=== PATIENT | female | born 1980 | race Caucasian/White ===

== ENCOUNTER 2016-08-02 17:34 | Emergency (ER) | payer OTHER ==
[~2016-08-02] VITALS: Ht 182.9 cm; Wt 71.0 kg
[~2016-08-02 17:34] MED LIST: IBUP600 PO; IRON325T2 PO; OXYC1SOL5 PO; PEDI1CHW6 CHEW
[2016-08-02 17:40] VITALS: BP 120/88; PULSE 70; RESP 18; TEMP 98.4; O2SAT 99
--- NOTE | 2016-08-02 17:50 | PD ---
HPI Chief Complaint: GI Complaint Time Seen by Provider: 17:49 Travel History International Travel<30 days: No Contact w/Intl Traveler<30days: No Traveled to known affect area: No History of Present Illness HPI 35-year-old female presents to the ED for evaluation of one week history of episodic fevers, chills, nausea and vomiting. Patient states first episode of vomiting occurred 4 days ago. She states that she was still feeling a little nauseated but was able to go about her normal activities. She endorses several similar episodes over the last 3 days. She also endorses dull, anterior headache. She denies photophobia, sensitivity to noise, vision changes, dizziness. She denies sinus congestion, ear pain, rhinorrhea, cough. She denies palpitations, shortness of breath, abdominal pain, dysuria, back pain. Denies chronic health problems. Takes no daily medications. NKDA. PFSH Past Medical History Medical History: Denies Significant Hx Cancer: No Cardiovascular Problems: No Diabetes: No Endocrine: No Genitourinary: No Hepatitis: No Hiatal Hernia: No Immune Disorder: No Musculoskeletal: No Neurologic: No Psychiatric: No Reproductive: Yes (MISSED AB) Respiratory: No Thyroid Disease: No Tetanus Vaccination: > 5 Years Influenza Vaccination: No ?: Not LMP: TUESDAY : 3 Para: 1 : 1 Past Surgical History Body Medical Devices: BILATERAL BREAST IMPLANTS Ear Surgery: Yes (INSERTION JUAN JOSE EAR TUBES) Tonsillectomy: Yes Other Surgery: Yes (BREAST IMPLANTS) Social History Alcohol Use: No Tobacco Use: No Substance Use: No Allergies-Medications (Allergen,Severity, Reaction): Coded Allergies: No Known Allergies (Unverified , 08/02/16) Reported Meds & Prescriptions Reported Meds & Active Scripts Active Zofran Odt (Ondansetron Odt) 4 Mg Tab 4 Mg SL Q8HR PRN Bactrim DS (Sulfamethoxazole-Trimethoprim) 800-160 Mg Tab 1 Tab PO BID Review of Systems Except as stated in HPI: all other systems reviewed are Neg Physical Exam Narrative GENERAL: Well-nourished, well-developed nontoxic appearing white female in no acute distress. SKIN: Warm and dry. HEAD: Normocephalic. Atraumatic. EYES: No scleral icterus. No injection or drainage. PERRLA. EOMI. ENT: Pearly sorenson tympanic membranes bilaterally. Nasal mucosa is moist. Oropharynx without erythema, edema or exudate. NECK: Supple, trachea midline. No JVD or lymphadenopathy. CARDIOVASCULAR: Regular rate and rhythm without murmurs, gallops, or rubs. 2+ DP and radial pulses bilaterally. RESPIRATORY: Breath sounds clear and equal bilaterally. No accessory muscle use. GASTROINTESTINAL: Abdomen soft, nondistended. + Bowel sounds. Tender to deep palpation of the right extreme lower quadrant. Negative Rovsing's or obturator signs. MUSCULOSKELETAL: No cyanosis, or edema. Patient is ambulatory, moves extremities spontaneously. NEUROLOGICAL: Awake and alert. Cranial nerves II through XII intact. Motor and sensory grossly within normal limits. Five out of 5 muscle strength in all muscle groups. Normal speech. BACK: Nontender without obvious deformity. No CVA tenderness. Data Data Last Documented VS Vital Signs Date Time Temp Pulse Resp B/P Pulse Ox O2 Delivery O2 Flow Rate FiO2 08/02/16 20:31 72 20 123/73 98 Room Air 08/02/16 17:40 98.4 Orders Complete Blood Count With Diff (08/02/16 18:03) Comprehensive Metabolic Panel (08/02/16 18:03) Lipase (08/02/16 18:03) Lactic Acid (08/02/16 18:03) Prothrombin Time / Inr (Pt) (08/02/16 18:03) Act Partial Throm Time (Ptt) (08/02/16 18:03) Urinalysis - C+S If Indicated (08/02/16 18:03) Iv Access Insert/Monitor (08/02/16 18:03) Sodium Chloride 0.9% Flush (Ns Flush) (08/02/16 18:15) Ed Urine Pregnancytest Poc (08/02/16 18:03) Ondansetron Inj (Zofran Inj) (08/02/16 18:15) Sodium Chlorid 0.9% 500 Ml Inj (Ns 500 M (08/02/16 18:15) Influenzae A/B Antigen (08/02/16 18:09) Urine Culture (08/02/16 18:15) Sulfamet-Trimeth Ds 800-160 Mg (Bactrim (08/02/16 19:15) Us Pelvis Comp W Doppler (08/02/16 ) Ketorolac Inj (Toradol Inj) (08/02/16 20:15) Labs Laboratory Tests Test 08/02/16 08/02/16 18:15 18:18 Urine Collection Type VOIDED Urine Color STRAW Urine Turbidity CLEAR Urine pH 6.0 Urine Specific [place] 1.011 Urine Protein NEG mg/dL Urine Glucose (UA) NEG mg/dL Urine Ketones NEG mg/dL Urine Occult Blood LARGE Urine Nitrite NEG Urine Bilirubin NEG Urine Leukocyte Esterase TRACE Urine WBC 0-2 /hpf Urine WBC Clumps RARE Urine Squamous Epithelial 0-5 /hpf Cells Urine Bacteria RARE /hpf Microscopic Urinalysis Comment CULTURE INDICATED White Blood Count 5.5 TH/MM3 Red Blood Count 4.48 MIL/MM3 Hemoglobin 13.8 GM/DL Hematocrit 40.3 % Mean Corpuscular Volume 89.9 FL Mean Corpuscular Hemoglobin 30.8 PG Mean Corpuscular Hemoglobin 34.3 % Concent Red Cell Distribution Width 12.4 % Platelet Count 265 TH/MM3 Mean Platelet Volume 7.9 FL Neutrophils (%) (Auto) 57.4 % Lymphocytes (%) (Auto) 26.2 % Monocytes (%) (Auto) 8.6 % Eosinophils (%) (Auto) 3.8 % Basophils (%) (Auto) 4.0 % Neutrophils # (Auto) 3.2 TH/MM3 Lymphocytes # (Auto) 1.4 TH/MM3 Monocytes # (Auto) 0.5 TH/MM3 Eosinophils # (Auto) 0.2 TH/MM3 Basophils # (Auto) 0.2 TH/MM3 CBC Comment DIFF FINAL Differential Comment Prothrombin Time 11.4 SEC Prothromb Time International 1.0 RATIO Ratio Activated Partial 28.8 SEC Thromboplast Time Sodium Level 141 MEQ/L Potassium Level 3.9 MEQ/L Chloride Level 108 MEQ/L Carbon Dioxide Level 26.3 MEQ/L Anion Gap 7 MEQ/L Blood Urea Nitrogen 14 MG/DL Creatinine 0.80 MG/DL Estimat Glomerular Filtration 82 ML/MIN Rate Random Glucose 101 MG/DL Lactic Acid Level 0.9 mmol/L Calcium Level 8.4 MG/DL Total Bilirubin 1.2 MG/DL Aspartate Amino Transf 11 U/L (AST/SGOT) Alanine Aminotransferase 11 U/L (ALT/SGPT) Alkaline Phosphatase 46 U/L Total Protein 6.6 GM/DL Albumin 3.6 GM/DL Lipase 100 U/L [facility] Medical Decision Making Medical Screen Exam Complete: Yes Emergency Medical Condition: Yes Differential Diagnosis influenza versus ectopic versus cholecystitis versus appendicitis versus cystitis versus UTI versus ovarian torsion versus ovarian cyst versus other Narrative Course 35-year-old female presents to the ED for evaluation of one week history of episodic fevers, chills, nausea and vomiting. Patient states first episode of vomiting occurred 4 days ago. She states that she was still feeling a little nauseated but was able to go about her normal activities. She endorses several similar episodes over the last 3 days. Episodes last 30 minutes to an hour, resolved spontaneously. She also endorses dull, anterior headache. She denies photophobia, sensitivity to noise, vision changes, dizziness,sinus congestion, ear pain, rhinorrhea, cough, palpitations, shortness of breath, abdominal pain, dysuria, back pain. Vitals reviewed. Physical exam reveals a nontoxic- appearing white female in no acute distress. There is tenderness to deep palpation in the right extreme lower quadrant but the physical exam is otherwise reassuring. IV was established. Patient was administered half liter bolus and IV Zofran and Toradol. CBC: No leukocytosis or anemia CMP: Unremarkable UA: Large occult blood, trace leukocyte esterase, rare wbc clumps, rare bacteria. Culture pending. Lipase: 100 Lactic acid: 0.9 Bedside urine test: Coags: INR 1.0 Influenza: Negative Pelvic ultrasound: Normal for age per radiology read. Recheck the patient reveals improvement of her headache symptoms. Patient was prescribed Bactrim DS twice a day 7 days. First dose administered in the ED. I prescribed Zofran 5 doses. Discussed the results of the workup with the patient. We discussed reasons to return to the ED. Patient is instructed to take medication as prescribed, follow up with her primary care provider. She indicated understanding of the instructions and is amenable to the plan of care. This patient is stable and discharged home. Diagnosis Primary Impression: Urinary tract infection Qualified Code: N39.0 - Urinary tract infection with hematuria, site unspecified Additional Impression: Cephalgia Qualified Code: R51 - Nonintractable episodic headache, unspecified headache type Referrals: Primary Care Physician Patient Instructions: General Instructions, Urinary Tract Infection in Women ( ED) Additional Instructions: Rest, hydrate. Take all medication as prescribed, even if your symptoms resolved. Zofran as needed for nausea. Follow-up with the primary care provider next week. Return to the ED for any urgent or emergent medical condition. Med/Other Pt SpecificInfo: Prescription(s) given Scripts Ondansetron Odt (Zofran Odt)4 Mg Tab4 Mg SL Q8HR PRN (Nausea/Vomiting) #4 TAB Ref 0 Prov:Myles Marvin MD 08/02/16 Sulfamethoxazole-Trimethoprim (Bactrim DS)800-160 Mg Tab1 Tab PO BID #14 TAB Ref 0 Prov:Myles Marvin MD 08/02/16 Disposition: 01 DISCHARGE HOME Condition: Stable Kavitha Dietz Aug 02, 2016 17:49
[2016-08-02] MEDS ORDERED: ONDANSETRON HCL 4 MG/2 ML VIAL IV PUSH ONE (18:15)
[2016-08-02] MEDS ORDERED: SODIUM CHLORID 0.9% 500 ML INJ 500 ML IV ONE (18:15)
[2016-08-02] MEDS ORDERED: SODIUM CHLORIDE 0.9% FLUSH 5 ML FLUSH IVF PRN (18:15)
[2016-08-02 18:24] LABS: AUTOMATED NEUTROPHIL # 3.2 TH/MM3 (1.8-7.7); BASOPHIL # 0.2 TH/MM3 (0-0.2); EOSINOPHIL # 0.2 TH/MM3 (0-0.4); EOSINOPHIL % 3.8 % (0.0-4.0); HEMATOCRIT 40.3 % (35.0-46.0); HEMO FLAGS DIFF FINAL; LYMPH % 26.2 % (9.0-44.0); LYMPHOCYTE # 1.4 TH/MM3 (1.0-4.8); MEAN CELL VOLUME 89.9 FL (80.0-100.0); MEAN CORPUSCULAR HEMOGLOBIN 30.8 PG (27.0-34.0); MEAN CORPUSCULAR HGB CONC 34.3 % (32.0-36.0); MONO % 8.6 % (0.0-8.0); NEUT % 57.4 % (16.0-70.0); PLATELET COUNT 265 TH/MM3 (150-450); RED BLOOD COUNT 4.48 MIL/MM3 (4.00-5.30); RED CELL DISTRIBUTION WIDTH 12.4 % (11.6-17.2); WHITE BLOOD COUNT 5.5 TH/MM3 (4.0-11.0)
[2016-08-02 18:42] LABS: CHLORIDE 108 MEQ/L (98-107); POTASSIUM 3.9 MEQ/L (3.5-5.1); SODIUM (NA) 141 MEQ/L (136-145)
[2016-08-02 18:47] LABS: ANION GAP 7 MEQ/L (5-15); BICARBONATE 26.3 MEQ/L (21.0-32.0); BLOOD UREA NITROGEN 14 MG/DL (7-18)
[2016-08-02 18:49] LABS: ALT (GPT) 11 U/L (10-53); AST (GOT) 11 U/L (15-37)
[2016-08-02 18:50] LABS: APTT (PATIENT) 28.8 SEC (24.3-30.1); GLOMERULAR FILTRATION RATE 82 ML/MIN (>89); PROTHROMBIN TIME - PATIENT 11.4 SEC (9.8-11.6)
[2016-08-02 18:51] LABS: TOTAL BILIRUBIN ADULT 1.2 MG/DL (0.2-1.0)
[2016-08-02 18:52] LABS: ALKALINE PHOSPHATASE 46 U/L (45-117)
[2016-08-02 19:00] LABS: BLOOD, URINE LARGE (NEG); GLUCOSE,URINE NEG (NEG); KETONE, URINE NEG (NEG); NITRITE,URINE NEG (NEG)
[2016-08-02 19:07] VITALS: BP 116/70; PULSE 62; RESP 20; O2SAT 100
[2016-08-02 19:09] LABS: METHOD OF COLLECTION VOIDED; SQUAMOUS EPITHELIAL CELL URINE 0-5 /hpf (0-5); URINE COLOR STRAW (YELLW/STRAW); WBC, URINE 0-2 /hpf (0-5)
[2016-08-02 19:11] LABS: BACTERIA, URINE RARE /hpf; COMMENT (UR) CULTURE INDICATED; CULTURE IF INDICATED CULTURE INDICATED
[2016-08-02] MEDS ORDERED: SULFAMETHOXAZOLE-TRIMETHOPRIM DS 800-160 MG TAB PO ONE (19:15)
[2016-08-02] MEDS ORDERED: KETOROLAC TROMETHAMINE 30 MG/ML (IVP) VIAL IV PUSH ONE (20:15)
[2016-08-02] MEDS ORDERED: BACT800T5 PO (20:23)
--- NOTE | 2016-08-02 20:28 | RADHPO ---
EXAM DATE/TIME: 08/02/2016 19:27 [facility] COMPARISON: No previous studies available for comparison. INDICATIONS : Right sided pelvic pain. MEDICAL HISTORY : Missed . Pelvic pain. SURGICAL HISTORY : Tubal ligation. Tonsillectomy. Breast implants. Tubes in bilateral ears. ENCOUNTER: Initial ACUITY: 1 day PAIN SCORE: 6/10 LOCATION: Bilateral pelvis MEASUREMENTS: UTERUS: 8.6 x 4.8 x 5.1 cm ENDOMETRIAL STRIPE: 9 mm RIGHT OVARY: 3.6 x 2.6 x 2.6 cm LEFT OVARY: 3.2 x 2.0 x 2.9 cm FINDINGS: UTERUS: The myometrium has homogeneous echotexture without mass. RIGHT OVARY: Ovary contains no mass or significant cystic lesion. LEFT OVARY: Ovary contains no mass or significant cystic lesion. MISCELLANEOUS: No free fluid. CONCLUSION: Normal for age. Daniel Xie MD on August 02, 2016 at 20:26 Board Certified Radiologist. This report was verified electronically.
[2016-08-02 20:31] VITALS: BP 123/73; PULSE 72; RESP 20; O2SAT 98
[2016-08-02] MEDS ORDERED: ZOFR4TAB3 SL (20:45)
== END 2016-08-02 21:04 | disposition home or self-care (01) ==
LOC: PHEFT 17:34
DX: N39.0 Urinary tract infection, site not specified (principal); R51 Headache; R10.2 Pelvic and perineal pain
CPT/HCPCS: 76856; 80053; 81001; 83605; 83690; 84703; 85025; 85610; 85730; 87086; 87804; 93975; 96361; 96374; 96375; 99284; J1885; J2405; J7040